=== PATIENT | male | born 1955 | race Caucasian/White ===

== ENCOUNTER → 2020-01-11 12:30 | Outpatient (CLI) | payer MEDICARE, SELFPAY ==
--- NOTE | 2020-01-11 12:31 | CA_ITS ---
APPROVED REPORT EXAM: Comprehensive 2D, Doppler, and color-flow Echocardiogram Printer Repair Technician: Denisse Kim CRT Ht: 6 ft 1 in Wt: 214lbs BSA: 2.21 BP: 150/90 mmHg Indications: SOB, HTN, SMOKER, FATIGUE, GERD 2D Dimensions LVOT 1.85 cm (M/F) 1.5-2.5 M-Mode Dimensions RVDd 2.35 cm (0.9-2.6) LVDd 5.04 cm (3.5-5.7) LVDs 3.45 cm (3.5-5.7) IVSd 1.86 cm (0.6-1.1) PWd 0.64 cm (0.6-1.1) EF (Teich) 59.30% FS 31.50% EDV (Teich) 120.50 mL ESV (Teich) 49.10 mL LV Diastology E/A Ratio 0.83 Mitral Valve MV A Velocity 58.00 (40-130 cm/s) Left Ventricle Left atrium is mildly enlarged, left ventricle is normal size, mild concentric left ventricular hypertrophy, visually estimated ejection fraction 55% with no regional wall motion abnormality. Grade 1 diastolic dysfunction seen without tissue Doppler evidence of raise left atrial pressure. Right Ventricle Right atrium and right ventricle are normal size and contractility. Aortic Valve Aortic valve is minimally thickened and fibrosed, there is no aortic stenosis aortic insufficiency. Mitral Valve Mitral valve is grossly normal, there is mild mitral regurgitation. Tricuspid Valve Tricuspid valve is grossly normal, there is mild tricuspid regurgitation. Tricuspid regurgitation jet velocity is inadequate for calculation of the right ventricular systolic pressure. Pulmonic Valve Pulmonic valve is poorly visualized. Great Vessels Aortic root is normal size. Pericardium No significant pericardial effusion noted. Conclusion 1. Mildly enlarged left atrium, normal left ventricular size, mild concentric left ventricular hypertrophy, visually estimated ejection fraction 55% with no regional wall motion abnormality. Grade 1 diastolic dysfunction seen without tissue Doppler evidence of raise left atrial pressure. 2. Mild mitral and tricuspid regurgitation. 3. No significant pericardial effusion noted. Electronically signed by : Torsten Lopez, 01/12/2020 14:46:50
== END ==
LOC: RT 12:31
PROVIDERS: Visit Provider Nurse Practitioner Family
DX: I11.9 Hypertensive heart disease without heart failure (principal); R06.00 Dyspnea, unspecified; Z72.0 Tobacco use
CPT/HCPCS: 93306

== ENCOUNTER → 2023-06-18 10:28 | Outpatient (CLI) | payer MEDICARE, SELFPAY ==
[2023-06-18 11:01] LABS: Basophils # 0.1 K/mm3 (0-0.2); Basophils % 0.9 % (0.1-2.0); Eosinophils # 0.2 K/mm3 (0.0-0.4); Eosinophils % 2.6 % (0.1-12.0); Hematocrit 53.8 % (42.0-52.0); Lymphocytes # 0.9 K/mm3 (0.7-4.5); Mean Corpuscular HGB Conc 33.6 g/dL (31.8-35.4); Mean Corpuscular Hemoglobin 30.8 pg (27.0-31.2); Mean Corpuscular Volume 91.7 fl (80-94); Mean Platelet Volume 10.2 fl (7.4-10.4); Monocytes # 0.5 K/mm3 (0.1-1.0); Monocytes % 7.9 % (1.7-9.3); Neutrophils # 4.9 K/mm3 (1.8-7.8); Neutrophils % 74.6 % (37.0-80.0); Platelet Count 145 K/mm3 (142-424); Red Blood Count 5.86 M/mm3 (4.60-6.20); Red Cell Distribution Width 14.9 % (11.5-17.5); White Blood Count 6.6 K/mm3 (4.8-10.8)
[2023-06-18 11:11] LABS: Hemoglobin 18.1 g/dL (14.1-18.0)
[2023-06-18 11:16] LABS: Chloride 102 mmol/L (98-107)
[2023-06-18 11:17] LABS: Potassium 4.3 mmoL/L (3.5-5.1); Sodium 138 mmol/L (136-145)
[2023-06-18 11:19] LABS: Alanine Aminotransferase 36 U/L (12-78); Alkaline Phosphatase 77 U/L (38-126); Anion Gap 8.3 mEq/L (5-15); Aspartate Amino Transferase 35 U/L (17-59); Bilirubin,Direct 0.3 mg/dl (0.0-0.4); Bilirubin,Total 1.3 mg/dl (0.2-1.3); Bilirubin,Unconjugated 1.1 mg/dL (0.0-1.1); Blood Urea Nitrogen 11 mg/dl (9-20); Carbon Dioxide 32 mmol/L (22.0-30.0); Cholesterol 246 mg/dl (140-200); Estimated Glomerular Filt Rate 84 ml/min (>60); GFR (African American) 101 ML/MIN (>60); Triglycerides 184 mg/dl (30-150); VLDL Cholesterol 37 mg/dL (0-40)
[2023-06-18 11:20] LABS: Calcium 8.6 mg/dl (8.4-10.2); Chol/HDL Ratio 6.3 (1-3.5); Glucose 92 mg/dl (74-100); HDL Cholesterol 39 mg/dl (40-60); Total Protein,Serum 6.9 g/dl (6.3-8.2)
[2023-06-18 11:22] LABS: Troponin I < 0.01 ng/ml (0.00-0.034)
[2023-06-18 11:31] LABS: Direct LDL Cholesterol 161.92 mg/dL (100-129)
[2023-06-18 11:36] LABS: Free T4 (Free Thyroxine) 1.17 ng/dl (0.78-2.19)
== END ==
PROVIDERS: Visit Provider Physician Assistant
DX: I11.9 Hypertensive heart disease without heart failure (principal); Z86.73 Personal history of transient ischemic attack (TIA), and cerebral infarction without residual deficits; Q24.5 Malformation of coronary vessels; R06.00 Dyspnea, unspecified; R07.9 Chest pain, unspecified; F17.290 Nicotine dependence, other tobacco product, uncomplicated
CPT/HCPCS: 36415; 80048; 80061; 80076; 84439; 84443; 84484; 85025

== ENCOUNTER → 2023-07-06 08:36 | Outpatient (CLI) | payer MEDICARE, SELFPAY ==
[2023-07-06] VITALS (8 sets, daily range): BP systolic 107–150; BP diastolic 64–97; PULSE 53–67; RESP 18–20; TEMP 36.1–36.3; O2SAT 95–97
--- NOTE | 2023-07-06 08:36 | CT_ITS ---
APPROVED REPORT Graduate Recruiter: CLINICAL INDICATION Chest Pain TECHNIQUE Image Acquisition: A 128 slice MDCT scanner (LUXAa View) was used for data acquisition. A noncontrast coronary calcium scan was performed. A CT attenuation threshold of 130 Hounsfield units (HU) was used for the detection of calcium in contiguous voxels of 1 sq mm in area to be counted as individual lesions. Bolus tracking in the ascending aorta with a threshold of 180 HU was performed. Immediately afterwards, ECG synchronized cardiac CT was then performed from the cardiac base to apex using retrospective gating with ECG tube current modulation. A total of 85 mL of Isovue 370 mg/mL contrast medium was administered at 5 mL/sec followed by a saline flush using a biphasic injection protocol. A tube voltage of 120 KVp was used. The patient received the following medications prior to the cardiac CT. 50 mg of oral metoprolol 0.8mg of sublingual nitroglycerin The average heart rate at the time of acquisition was 64 bpm and regular. Image Reconstruction Transaxial images were reconstructed at 0.67 mm slide thickness. Data was reviewed interactively on an advanced workstation capable of 2 and 3-dimensional displays in all conventional reconstruction formats, including multiplanar reformations, maximum intensity projections, curved multiplanar reformations, and volume rendered reconstructions. When applicable, selected routine images describing the relevant coronary anatomy and pathology were saved and sent to PACS. Complications None Technical Quality Overall image quality was suboptimal. Coronary artery opacification was adequate. Total DLP (Dose-Length Product) is 1583.9 mGy-cm. The reported value represents the total of one or more individual components during the CT acquisition of this date and at this time, and as such, the same value may appear in more than one CT report depending on the interpreting/reporting physicians. COMPARISON None FINDINGS CT Coronary Calcium Scoring LMA (Left Main Artery) = 0 LAD (Left Anterior Descending) = 8 LCX (Left Coronary Circumflex) = 2 RCA (Right Coronary Artery) = 0 Total Calcium Score = 10 using the AJ-130 method. The observed calcium score of 10 is at 47th percentile for subjects of the same age, sex, and race/ethnicity. The interpretation of the calcium heart score is based on the following continuum*: 0 = no calcified plaque detected (risk of coronary artery disease is very low ??? less than 5%) 1-10 = calcium detected in extremely minimal levels (risk of coronary diseases is still low ??? less than 10%) 11-100 = mild levels of plaque detected with certainty (mild or minimal narrowing of heart arteries is likely) 101-400 = definite,at least moderate levels of plaque detected (relatively high risk of a heart attack within 3-5 years) >401-999 = extensive levels of plaque detected (high risk of heart attack, high levels of vascular disease are present, high likelihood of at least one significant coronary narrowing) *The calcium heart score quantifies the burden of coronary calcification/plaque in the coronary arteries. The calcium heart score is not able to evaluate the presence or burden of non-calcified (i.e. soft) plaque. There is no identifiable calcification in the aortic valve, mitral annulus or mitral valve, pericardium, or myocardium. Coronary CT Angiography Coronaries have normal origin and proximal course. The coronary arterial system is right dominant. Note: Stenosis is reported as maximum percentage diameter stenosis. Quantitative Stenosis Grading: Left Main (LM): The left main originates normally from the left sinus of Valsalva. The LM bifurcates into the left anterior descending artery and left circumflex artery. The LM is patent with no evidence of atherosclerosis. Left Anterior Descending (LAD) and Diagonal Branches: The LAD gives off 3 diagonal branches. There is mild mixed plaque in the proximal LAD with 50-70% luminal stenosis at the site of bifurcation with the first diagonal branch, as well as moderate non-calcified plaque in the mid-LAD with approximately 70-90% luminal stenosis. The remainder of the LAD and its branches are patent with no evidence of atherosclerosis. There is no evidence of LAD bridge. Ramus-intermedius (RI): The RI is patent. Left Circumflex (LCX) and Obtuse Marginals (OM): The LCX gives off 2 Obtuse Marginal (OM) branches. There is a non-calcified plaque in the proximal LCX at the site of bifurcation with OM1 of approximately 50-70% luminal stenosis. The remainder of the LCX and its branches are patent with no evidence of atherosclerosis. Right Coronary Artery (RCA): The RCA originates normally from the right sinus of Valsalva. The RCA gives off a posterior descending artery (PDA) and posterolateral (PL) branches. The RCA and its branches are patent with no evidence of atherosclerosis. Non-Coronary Cardiac Findings: Analysis of the left ventricular (LV) structure and function was performed after 3-D reconstruction of the LV from axial images, with user-corrected automatic contouring for assessment of LV volumes and user-defined reconstruction from oblique planes for measurement of 3-D cardiac structure and function. LVEDV: 195 mL LVESV: 95 mL SV: 99 mL LVEF: 51 % -The left ventricle is dilated with low-normal left ventricular systolic function. -There is moderate hypokinesis of the mid to distal septal and anteroseptal LV chandler. -There is no left atrial appendage filling defect. Two right pulmonary veins and two left pulmonary veins drain normally into the left atrium. -No pericardial thickening or calcification. -Central and branch pulmonary arteries in the [id number] are unremarkable. -Thoracic aorta within the visualized thoracic aortic-branches in the [id number] is unremarkable. Extracardiac Structures No significant extra-cardiac findings. IMPRESSION -Presence of coronary calcification with an Agatston score = 10 using the AJ-130 method. -The observed calcium score of 10 is at 47th percentile for subjects of the same age, sex, and race/ethnicity. -Likely significant flow-limiting atherosclerosis of the LAD and LCX. -CAD-RADS 4A. Management recommendations per ACC/AHA guidelines*, as clinically appropriate. -Low-normal LV systolic function with presence of wall motion abnormalities noted. *Recommendations: CAD RADS 0: Reassurance. Consider non-atherosclerotic causes of chest pain. CAD RADS 1: Consider non-atherosclerotic causes of chest pain. Consider preventive therapy and risk factor modification. CAD RADS 2: Consider non-atherosclerotic causes of chest pain. Consider preventive therapy and risk factor modification, particularly for patients with nonobstructive plaque in multiple segments. CAD RADS 3: Consider further functional testing. Consider symptom-guided anti-ischemic and preventive pharmacotherapy as well as risk factor modification per published guideline statements. CAD RADS 4A: Consider further functional testing or invasive coronary angiography with revascularization per published guideline statements. Consider symptom-guided anti-ischemic and preventive pharmacotherapy as well as risk factor modification per published guideline statements. CAD RADS 4B: Invasive coronary angiography recommended with revascularization per published guideline statements. Consider symptom-guided anti-ischemic and preventive pharmacotherapy as well as risk factor modification per published guideline statements. CAD RADS 5: Consider invasive angiography and/or viability assessment with revascularization per published guideline statements. Consider symptom-guided anti-ischemic and preventive pharmacotherapy as well as risk factor modification per published guideline statements. CRITICAL RESULT None COMMUNICATION Per this written report The coronary and cardiac findings of this CCTA were reviewed, reported, and signed by Keven Sheppard MD (Tab Builder) Conclusion Electronically signed by : Adriana Sheppard MD 07/08/2023 11:45:27
[2023-07-06] MEDS: METOPROLOL TARTRATE 50MG TABLET 50 MG (09:08)
[2023-07-06] MEDS: NITROGLYCERIN 0.4MG SL TABLET 0.800000000000000044 MG SL (09:40)
--- NOTE | 2023-07-06 09:52 | PC.NURSE ---
Pt sitting up in chair drinking soft drink. Pt denies any dizziness or lightheadedness. No needs or concerns voiced.
--- NOTE | 2023-07-06 10:02 | PC.NURSE ---
Pt sitting up in chair. No needs or concerns voiced. Pt denies and lightheadedness or dizziness.
--- NOTE | 2023-07-06 10:12 | PC.NURSE ---
Pt sitting up in chair. No needs or concerns voiced. Pt denies any dizziness, headache, or lightheadedness at this time.
--- NOTE | 2023-07-06 10:22 | PC.NURSE ---
Pt denies any lightheadedness, dizziness, or headache. Pt wanting to go home. Pt assisted to bathroom. Iv d/c. Discharge teaching completed at this time. No needs or concerns voiced.
[2023-07-06] MEDS: 0.9 % SODIUM CHLORIDE 50 ML VIAL IV (10:31)
[2023-07-06] MEDS: IOPAMIDOL-370 (76%);100ML BOTTLE 85 ML IV (10:31)
[2023-07-06] MEDS: SODIUM CHLORIDE 0.9% 10ML SYR (RAD ONLY) 10 ML IV (10:31)
--- NOTE | 2023-07-06 10:40 | PC.NURSE ---
Pt discharged home. Pt denies any dizziness, lightheadedness, or headache at this time.
== END | disposition home or self-care (01) ==
PROVIDERS: PCP Physician Assistant; Visit Provider Physician Assistant
DX: I11.9 Hypertensive heart disease without heart failure (principal); Q24.5 Malformation of coronary vessels; R06.00 Dyspnea, unspecified; R07.9 Chest pain, unspecified; Z72.0 Tobacco use
CPT/HCPCS: 75571; 75574; Q9967

== ENCOUNTER → 2023-07-16 12:16 | Outpatient (CLI) | payer MEDICARE, MEDICAID, SELFPAY ==
--- NOTE | 2023-07-16 12:23 | CA_ITS ---
APPROVED REPORT EXAM: Comprehensive 2D, Doppler, and color-flow Echocardiogram Network Intelligence Analyst: Smitha Trejo RT(R) Ht: 6 ft 1 in Wt: 218lbs BSA: 2.23 BP: 146/78 mmHg Indications: SOB, CP, smoker, HTN, hyperlipidemia 2D Dimensions Left Atrium 2.98 cm M: 3.0 - 4.0 LA Volume 28.90 mL LVOT 2.25 cm (M/F) 1.5-2.5 LA Volume Index 12.96 mL/m2 (M/F) 16-34 EF AP4 46.70 % GL Strain -11.4 % M-Mode Dimensions RVDd 2.79 cm (0.9-2.6) LVDd 4.31 cm (3.5-5.7) Ao Diam 3.24 cm (2.0-3.7) LVDs 3.42 cm (3.5-5.7) IVSd 0.93 cm (0.6-1.1) PWd 0.97 cm (0.6-1.1) EF (Teich) 42.40% FS 20.60% EDV (Teich) 83.50 mL ESV (Teich) 48.10 mL LV Diastology E Decel Time 175 (160-240 msec) E/A Ratio 1.3 MED E' 6.5 (>= 7 cm/sec) E'/MED E' Ratio 11.32 (<= 14) LAT E' 9.2 (>= 10 cm/sec) E/LAT E' Ratio 8.00 (<= 14) Mitral Valve MV E Max Lee. 74.0 (40-130 cm/s) MV A Velocity 56.0 (40-130 cm/s) E/A Ratio 1.30 MV Decel. Time 175 (160-240 ms) Left Ventricle The left ventricle is normal size. The left ventricular systolic function is normal. The left ventricular ejection fraction is within the normal range. There is increased LV wall thickness. There is mild hypokinesis of the distal septal and inferoseptal LV chandler. The left ventricular diastolic function is normal. LVEF is 55%. Right Ventricle The right ventricle is mildly dilated. The right ventricular systolic function is normal. Atria The left atrium size is normal. The right atrium size is normal. There is no Doppler evidence of interatrial shunt. Aortic Valve The aortic valve opens well. There is no aortic valvular stenosis. Mild aortic regurgitation. Mitral Valve The mitral valve is normal in structure. No evidence of mitral valve stenosis. Trace mitral regurgitation. Tricuspid Valve The tricuspid valve leaflets are thin and pliable. Trace tricuspid regurgitation. There is insufficient TR jet to estimate RVSP. Pulmonic Valve The pulmonary valve is normal in structure. Trace pulmonic regurgitation. Great Vessels The aortic root is normal in size. The ascending aorta is normal in size. IVC is normal in size and collapses >50% with inspiration. Pericardium There is no pericardial effusion. Other Information Study Quality: Fair Conclusion Normal biventricular systolic function. Mild hypokinesis of the distal septal and inferoseptal LV chandler. Mild AI. Electronically signed by : Adriana Sheppard MD 07/26/2023 20:19:14
== END ==
PROVIDERS: PCP Family Medicine; Visit Provider Nurse Practitioner Family
DX: Q24.5 Malformation of coronary vessels; R06.00 Dyspnea, unspecified; R07.9 Chest pain, unspecified; Z72.0 Tobacco use; I10 Essential (primary) hypertension
CPT/HCPCS: 93306

== ENCOUNTER 2023-07-17 07:46 | Day surgery (SDC) | payer MEDICARE, MEDICAID, SELFPAY ==
[2023-07-17] VITALS (12 sets, daily range): BP systolic 119–188; BP diastolic 70–100; PULSE 57–66; RESP 16–20; TEMP 37; O2SAT 94–99; BMI 28.8
--- NOTE | 2023-07-17 07:06 | IR_ITS ---
APPROVED REPORT Patient Location: Outpatient PROCEDURES Left heart catheterization Left ventriculogram Selective coronary angiogram INDICATION As tolerated angina pectoris Informed consent was obtained prior to the procedure. COMPLICATIONS NONE Estimated Blood Loss: LESS THAN 10 ML TECHNIQUE One percent lidocaine used to anesthetize the right anterior aspect of the wrist. The right radial artery was accessed via the Seldinger technique. A 6 Georgian sheath was placed in the right radial artery. 2.5 mg of Verapamil, 800 mcg of nitroglycerin, 1mg Lidocaine and 5000 U Heparin were given through the arterial sheath. The papa catheter was also used to perform left heart catheterization, left ventriculogram and selective coronary angiogram. At the end of the procedure the sheath was removed good hemostasis was achieved using Traclet band, patient was transferred to the postop holding area in stable condition. ANGIOGRAPHIC RESULTS The left main artery Normal The left anterior descending artery Has proximal 10% luminal irregularities with mid vessel 40 to 50% stenosis. The entire vessel is accompanied by CRYSTAL II flow The circumflex artery Is a large dominant vessel and proximally normal. The first obtuse marginal artery has an ostial concentric 50 to 60% stenosis. Remaining circumflex artery and terminal obtuse marginal arteries widely patent. The entire vessel has CRYSTAL II flow The right coronary artery Nondominant accompanied by CRYSTAL I flow The HINES ventriculogram reveals Preserved 60% The left ventricular end-diastolic pressure Elevated at 30 mmHg IMPRESSION Mild to moderate nonflow limiting coronary disease as described above CRYSTAL I and CRYSTAL II flow throughout the coronary arteries all consistent with endothelial dysfunction combined with diastolic dysfunction Preserved ejection fraction Elevated LVEDP consistent with diastolic dysfunction Underlining polycythemia PLAN 1. Medical management for coronary artery disease 2. Treatment of endothelial dysfunction 3. Avoidance of tobacco products 4. Low-dose diuretics should benefit elevated LVEDP 5. Recommend renal ultrasound and sleep study to better evaluate polycythemia 6. Consider referral to hematology 7. Patient appears to be a candidate for therapeutic phlebotomy which will also improve elevated LVEDP and likely improve endothelial dysfunction Electronically signed by : Rodney Harvey MD 07/17/2023 11:36:58
[2023-07-17 08:26] LABS: Basophils # 0.1 K/mm3 (0-0.2); Basophils % 0.8 % (0.1-2.0); Eosinophils # 0.1 K/mm3 (0.0-0.4); Eosinophils % 1.5 % (0.1-12.0); Hematocrit 55.9 % (42.0-52.0); Lymphocytes # 1.3 K/mm3 (0.7-4.5); Lymphocytes % 16.6 % (10-50); Mean Corpuscular HGB Conc 33.8 g/dL (31.8-35.4); Mean Corpuscular Hemoglobin 30.6 pg (27.0-31.2); Mean Corpuscular Volume 90.5 fl (80-94); Mean Platelet Volume 10.1 fl (7.4-10.4); Monocytes # 0.6 K/mm3 (0.1-1.0); Monocytes % 7.5 % (1.7-9.3); Neutrophils # 5.8 K/mm3 (1.8-7.8); Neutrophils % 73.7 % (37.0-80.0); Platelet Count 240 K/mm3 (142-424); Red Blood Count 6.17 M/mm3 (4.60-6.20); Red Cell Distribution Width 14.8 % (11.5-17.5); White Blood Count 7.8 K/mm3 (4.8-10.8)
[2023-07-17 08:29] LABS: Chloride 101 mmol/L (98-107); Potassium 4.1 mmoL/L (3.5-5.1)
[2023-07-17 08:32] LABS: Blood Urea Nitrogen 9 mg/dl (9-20); Carbon Dioxide 30 mmol/L (22.0-30.0); Creatinine Clearance Estimated 96 mL/min (50-200); Estimated Glomerular Filt Rate 111 ml/min (>60); GFR (African American) 135 ML/MIN (>60); Hemoglobin 18.9 g/dL (14.1-18.0)
[2023-07-17 08:33] LABS: Calcium 8.5 mg/dl (8.4-10.2); Glucose 97 mg/dl (74-100)
[2023-07-17 09:37] LABS: Anion Gap 10.1 mEq/L (5-15); Sodium 137 mmol/L (136-145)
== END 2023-07-17 14:27 | disposition home or self-care (01) ==
PROVIDERS: PCP Family Medicine; Visit Provider Internal Medicine
DX: I11.9 Hypertensive heart disease without heart failure (principal); I25.118 Atherosclerotic heart disease of native coronary artery with other forms of angina pectoris; Q24.5 Malformation of coronary vessels; R06.00 Dyspnea, unspecified; R07.9 Chest pain, unspecified; R94.30 Abnormal result of cardiovascular function study, unspecified; F17.210 Nicotine dependence, cigarettes, uncomplicated; Z79.899 Other long term (current) drug therapy
CPT/HCPCS: 80048; 85025; 93458; 99152; C1725; C1760; C1769; J1644; Q9967